=== PATIENT | male | born 1975 | race Caucasian/White ===

== ENCOUNTER → 2017-10-19 | Outpatient (CLI) | payer OTHER | LOC: M WUC 10:56 | DX: Z77.098 Contact with and (suspected) exposure to other hazardous, chiefly nonmedicinal, chemicals (principal) ==

== ENCOUNTER → 2018-12-25 | Outpatient (REF) | payer OTHER | LOC: M LAB REF 17:04 | PROVIDERS: ATTEND Family Medicine | DX: R79.9 Abnormal finding of blood chemistry, unspecified (principal) ==

== ENCOUNTER 2019-07-03 16:30 | Emergency (ER) | payer OTHER ==
[~2019-07-03] VITALS: Ht 185.4 cm; Wt 139.6 kg
[2019-07-03] MEDS ORDERED: NAPR500T6 (16:37)
[2019-07-03] MEDS ORDERED: LOSA50TA5 (16:37)
[2019-07-03] MEDS ORDERED: SERT50TA29 (16:37)
[2019-07-03] MEDS ORDERED: LOSA50TA88 (16:37)
[2019-07-03] MEDS ORDERED: NS 1,000 ML IV SCH (17:21)
[2019-07-03] MEDS ORDERED: ONDANSETRON 4MG/2ML VIAL (J2405) IV ONE (17:30)
[2019-07-03] MEDS ORDERED: KETOROLAC 30 MG/ML VIAL (J1885) IV ONE (17:30)
[2019-07-03] MEDS ORDERED: MORPHINE 4 MG/ML 1ML VIAL/SYRINGE (J2270) IV PRN (17:30)
[2019-07-03 18:01] LABS: BASO # 0.1 10^3/uL (0.0-0.2); BASO % 0.5 % (0.0-1.0); EOS % 0.4 % (0.0-3.0); HEMATOCRIT 48.4 % (42.0-52.0); HEMOGLOBIN 16.5 g/dl (13.5-17.5); LYMPH # 1.7 10^3/uL (1.5-5.0); LYMPH % 18.2 % (24.0-44.0); MEAN CORPUSCULAR HEMOGLOBIN 29.1 pg (27.0-33.0); MEAN CORPUSCULAR HGB CONC 34.1 g/dl (32.0-36.5); MEAN CORPUSCULAR VOLUME 85.4 fl (80.0-96.0); MONO # 0.5 10^3/uL (0.0-0.8); NEUTROPHILS # 6.9 10^3/uL (1.5-8.5); NEUTROPHILS % 75.5 % (36.0-66.0); PLATELET COUNT, AUTOMATED 242 10^3/uL (150-450); RED BLOOD COUNT 5.67 10^6/uL (4.30-6.10); WHITE BLOOD COUNT 9.2 10^3/uL (4.0-10.0)
--- NOTE | 2019-07-03 18:19 | REPVR ---
PROCEDURE INFORMATION: Exam: CT Abdomen And Pelvis Without Contrast Exam date and time: 07/03/2019 5:30 PM Age: 43 years old Clinical history: Abdominal pain; Flank; Right; Additional info: Right renal calc TECHNIQUE: Imaging protocol: Computed tomography of the abdomen and pelvis without contrast. Radiation optimization: All CT scans at this facility use at least one of these dose optimization techniques: automated exposure control; mA and/or kV adjustment per patient size (includes targeted exams where dose is matched to clinical indication); or iterative reconstruction. COMPARISON: No relevant prior studies available. FINDINGS: Liver: Mild diffuse hypoattenuation of the liver is present consistent with hepatic steatosis. Gallbladder and bile ducts: Normal. No calcified stones. No ductal dilation. Pancreas: Moderate pancreatic atrophy. Spleen: The spleen is enlarged measuring 14.5 cm longitudinally. Adrenals: Normal. No mass. Kidneys and ureters: The RIGHT pelvic ureter is mildly dilated to the level of a 2.7 x 1.6 x 1.3 mm calculus (142 Hounsfield units, not visible on the skilled labor radiograph) 3.6 cm above the ureterovesical junction. The RIGHT kidney shows moderate pelviectasis and mild abdominal ureterectasis with mild perinephric stranding. LEFT renal lateral lower kidney measuring 2.3 mm calyceal calculus. RIGHT renal lower pole 2 mm calyceal calculus. Stomach and bowel: Unremarkable. No obstruction. No mucosal thickening. Appendix: No evidence of appendicitis. Intraperitoneal space: Unremarkable. No free air. No significant fluid collection. Vasculature: Mild aortic atherosclerotic calcification without aneurysm. The iliac arteries show mild bilateral atherosclerotic calcifications without evidence of aneurysm. The RIGHT iliac arteries show mild atherosclerotic calcifications without evidence of aneurysm. Lymph nodes: Unremarkable. No enlarged lymph nodes. Bladder: The urinary bladder is partially decompressed and somewhat difficult to assess. Reproductive: Unremarkable as visualized. Bones/joints: L3-4 and L4-5 degenerative disc disease with mild retrolisthesis with mild spondylosis. Soft tissues: Bilateral inguinal hernias are present containing only intra-abdominal fat. LEFT inguinal region surgical clips. IMPRESSION: 1. RIGHT obstructive uropathy secondary to a distal pelvic ureteral calculus. 2. Bilateral renal calyceal lithiasis. 3. Fatty infiltration of the liver. 4. Mild splenomegaly. Electronically signed by: Quinn Rod On 07/03/2019 18:19:02 PM
[2019-07-03 18:25] LABS: ALBUMIN 4.3 GM/DL (3.2-5.2); ALT/SGPT 67 U/L (12-78); BILIRUBIN,DIRECT 0.2 MG/DL (0.0-0.2); BILIRUBIN,TOTAL 0.7 MG/DL (0.2-1.0); BLOOD UREA NITROGEN 19 MG/DL (7-18); CALCIUM LEVEL 9.8 MG/DL (8.5-10.1); CARBON DIOXIDE LEVEL 26 MEQ/L (21-32); CHLORIDE LEVEL 104 MEQ/L (98-107); CREATININE FOR GFR 1.01 MG/DL (0.70-1.30); GLOMERULAR FILTRATION RATE > 60.0 (>60); GLUCOSE, FASTING 105 MG/DL (70-100); LIPASE 76 U/L (73-393); POTASSIUM SERUM 4.5 MEQ/L (3.5-5.1); SODIUM LEVEL 139 MEQ/L (136-145); TOTAL PROTEIN 7.7 GM/DL (6.4-8.2)
[2019-07-03] MEDS ORDERED: PERC5TAB12 PO (19:13)
[2019-07-03] MEDS ORDERED: ZOFR4TAB16 PO (19:13)
[2019-07-03 19:32] VITALS: BP 162/93
== END 2019-07-03 19:33 | disposition home or self-care (01) ==
LOC: M ED 16:30
DX: N20.1 Calculus of ureter (principal); N13.8 Other obstructive and reflux uropathy; I10 Essential (primary) hypertension; Z87.442 Personal history of urinary calculi; Z79.899 Other long term (current) drug therapy
CPT/HCPCS: 74176; 80048; 80076; 81001; 83690; 85025; 96361; 96374; 96375; 99284; J1885; J2270; J2405

== ENCOUNTER → 2019-07-15 | Outpatient (REF) | payer OTHER ==
[~2019-07-15] MED LIST: LOSA50TA5; LOSA50TA88; NAPR500T6; PERC5TAB12 PO; SERT50TA29; ZOFR4TAB16 PO
[2019-07-15 18:17] LABS: APPEARANCE, URINE CLEAR (CLEAR); BACTERIA, URINE AUTO NEGATIVE (NEGATIVE); BILIRUBIN, URINE AUTO NEGATIVE (NEGATIVE); BLOOD, URINE BLOOD NEGATIVE (NEGATIVE); COLOR, URINE YELLOW (YELLOW); GLUCOSE, URINE (UA) AUTO NEGATIVE (NEGATIVE); KETONE, URINE AUTO NEGATIVE (NEGATIVE); LEUKOCYTE ESTERASE, URINE AUTO NEGATIVE (NEGATIVE); NITRITE, URINE AUTO NEGATIVE (NEGATIVE); PROTEIN, URINE AUTO NEGATIVE (NEGATIVE); RBC, URINE AUTO 1 /HPF (0-3); SQUAMOUS EPITHELIAL CELL UR AU 0 /HPF (0-6); WBC, URINE AUTO 1 /HPF (0-3)
== END ==
LOC: M SMT 17:08
PROVIDERS: ATTEND Nurse Practitioner Women's Health
DX: N13.2 Hydronephrosis with renal and ureteral calculous obstruction (principal)

== ENCOUNTER → 2020-03-05 | Outpatient (CLI) | payer OTHER ==
--- NOTE | 2020-04-21 10:40 | REP ---
CT OF THE ABDOMEN AND PELVIS WITHOUT IV OR BOWEL CONTRAST: Delay in reporting results from hospital computer system malfunction from malware / ransomware. HISTORY: Flank pain. COMPARISON: 09/03/18 The patient has known renal calculi. FINDINGS: There is a 3 mm calculus in the lower pole of the right kidney, nonobstructive. This is unchanged. There is a 3 mm calculus in the lower pole of the left kidney, nonobstructive, also unchanged. There is no hydronephrosis or perinephric stranding on the right or the left. The previous right hydronephrosis/hydroureter has resolved. There are no bladder calculi. The visualized lung stephens are unremarkable. The hepatic parenchyma is homogeneous. The gallbladder, pancreas and spleen are normal size and unremarkable. The adrenals are unremarkable. The abdominal aorta is unremarkable. The bowel and mesentery are unremarkable. There is no periaortic adenopathy or mass. There is a small 2.9 cm fat-containing umbilical hernia, unchanged PELVIS: There is no adenopathy or ascites. The pelvic bowel loops are unremarkable. The bladder is unremarkable. There are bilateral small fat-containing inguinal hernias, unchanged. IMPRESSION: There are nonobstructive renal calculi bilaterally, as described. No ureteral calculi are identified. There is no hydronephrosis. The previous right hydronephrosis has resolved. There is a small 2.9 cm fat-containing umbilical hernia, unchanged. There are bilateral fat-containing inguinal hernias, unchanged. MTDD
== END ==
LOC: M RAD 11:00
PROVIDERS: ATTEND Nurse Practitioner Women's Health
DX: N20.0 Calculus of kidney (principal)

== ENCOUNTER → 2021-03-24 | Outpatient (REF) | payer OTHER | LOC: M LAB REF 10:22 | PROVIDERS: ATTEND Family Medicine | DX: Z83.49 Family history of other endocrine, nutritional and metabolic diseases (principal) ==

== ENCOUNTER → 2022-05-23 | Outpatient (REF) | payer OTHER ==
[~2022-05-23] MED LIST changes: +LOSA50TA28; -LOSA50TA88
== END ==
LOC: M LAB REF 11:30
PROVIDERS: ATTEND Family Medicine
DX: E78.5 Hyperlipidemia, unspecified (principal)

== ENCOUNTER → 2022-06-01 | Outpatient (CLI) | payer OTHER ==
[~2022-06-01] MED LIST changes: +ISOVUE-370 76% 100ML VIAL As Ordered ONE
== END ==
LOC: M RAD 16:14
PROVIDERS: ATTEND Family Medicine
DX: M54.50 Low back pain, unspecified (principal)

== ENCOUNTER → 2023-09-04 | Outpatient (CLI) | payer OTHER ==
[~2023-09-04] MED LIST changes: -ISOVUE-370 76% 100ML VIAL As Ordered ONE
== END ==
LOC: M SOG 07:50
PROVIDERS: ATTEND Physician Assistant
DX: M25.531 Pain in right wrist (principal); M79.644 Pain in right finger(s)

== ENCOUNTER → 2025-02-02 | Outpatient (CLI) | payer OTHER ==
[~2025-02-02] MED LIST changes: +HYDR12.55 PO; +LOSA100T46 PO; +NAPR-1405; -NAPR500T6; +ZOLO100T PO
[2025-02-02 17:56] LABS: AMORPHOUS SEDIMENT SMALL (NEGATIVE); APPEARANCE, URINE CLOUDY (CLEAR); BACTERIA, URINE AUTO NEGATIVE (NEGATIVE); BILIRUBIN, URINE AUTO NEGATIVE (NEGATIVE); BLOOD, URINE BLOOD 1+ (NEGATIVE); GLUCOSE, URINE (UA) AUTO NEGATIVE (NEGATIVE); KETONE, URINE AUTO NEGATIVE (NEGATIVE); LEUKOCYTE ESTERASE, URINE AUTO NEGATIVE (NEGATIVE); MUCUS, URINE SMALL (NEGATIVE); NITRITE, URINE AUTO NEGATIVE (NEGATIVE); PROTEIN, URINE AUTO NEGATIVE (NEGATIVE); RBC, URINE AUTO 50 /HPF (0-3); SPECIFIC GRAVITY URINE AUTO 1.024 (1.002-1.035); SQUAMOUS EPITHELIAL CELL UR AU 0 /HPF (0-6); UROBILINOGEN, URINE AUTO 0.2 mg/dL (0.0-2.0); WBC, URINE AUTO 0 /HPF (0-3)
== END ==
LOC: M LAB 17:02
PROVIDERS: ATTEND Urology
DX: Z01.812 Encounter for preprocedural laboratory examination (principal); N20.0 Calculus of kidney

== ENCOUNTER → 2025-02-25 | Outpatient (CLI) | payer OTHER | LOC: M ADAMS 09:37 | PROVIDERS: ATTEND Urology | DX: Z87.442 Personal history of urinary calculi (principal); M47.815 Spondylosis without myelopathy or radiculopathy, thoracolumbar region ==